=== PATIENT | female | born 1980 | race African-American/Black ===

== ENCOUNTER 2017-04-17 15:40 | Emergency (ER) | payer MEDICAID ==
[~2017-04-17] VITALS: Ht 147.3 cm; Wt 61.5 kg
[~2017-04-17 15:40] MED LIST: CYCL-36 PO; DICL75 PO; HYDR50TA5 PO; LISI10TA PO; WAL-10TA2 PO
[2017-04-17 15:41] VITALS: BP 127/82; PULSE 90; RESP 20; TEMP 99.4; O2SAT 100
[2017-04-17] MEDS ORDERED: MECL-62 PO (16:44)
[2017-04-17] MEDS ORDERED: LISI10TA PO (16:44)
[2017-04-17] MEDS ORDERED: AMOX500C PO (16:44)
--- NOTE | 2017-04-17 16:47 | PD ---
HPI Chief Complaint: Dizziness Time Seen by Provider: 16:40 Travel History International Travel<30 days: No Contact w/Intl Traveler<30days: No Traveled to known affect area: No History of Present Illness HPI 37-year-old female presents to emergency Department with request for medication refill and 2 complaints. Requesting a medication refill on her lisinopril/ hydrochlorothiazide. She took her last pill this morning. First complaint is feeling of dizziness for the last month and a half or more. Dizziness occurs occasionally. Notices it more when she turns her head fast or makes sudden movements. He describes it as a feeling that she is on a boat on waves. She denies feeling faint or syncopal episode. Reports occasional headaches but there normal headaches for her. Denies headache at this time. Denies fever, nausea, vomiting. Denies focal deficits or weakness. Denies slurred speech. Denies confusion, disorientation, change in mentation. Her second complaint is left upper tooth pain since Sunday. She says she does need a root canal and the tooth pain has significantly worsened since Sunday. Facial edema, erythema. Pain is worse with eating. Reports to sensitivity to cold and hot. Denies fever. Has been taking acetaminophen for symptom management. Has no medical complaints. Symptoms are mild in severity. No known allergies. Dr. Bentley is primary care provider. No other modifying factors or associated signs and symptoms. PFSH Past Medical History Cardiovascular Problems: Yes (HTN) Diminished Hearing: No Genitourinary: Yes (GENITAL HERPES) Hypertension: Yes Respiratory: Yes (ALLERGIES) Menopausal: No : 4 Para: 2 Miscarriage: 2 : 1 Past Surgical History Section: Yes (2003, 2009) Other Surgery: Yes (HERNIA, HEMMROIDECTOMY) Social History Alcohol Use: No Tobacco Use: No Substance Use: No Allergies-Medications (Allergen,Severity, Reaction): Coded Allergies: No Known Allergies (Verified , 08/14/16) Reported Meds & Prescriptions Reported Meds & Active Scripts Active Amoxicillin 500 Mg Cap 500 Mg PO BID 10 Days Meclizine (Meclizine HCl) 25 Mg Tab 25 Mg PO DIRECTED PRN Lisinopril-Hctz 10-12.5 Mg Tab 1 Tab PO DAILY Flexeril (Cyclobenzaprine HCl) 10 Mg Tab 10 Mg PO TID PRN Do not drive on medication. Do not take with alcohol. Diclofenac Sodium Dr (Diclofenac Sod) 75 Mg Tab 75 Mg PO BID PRN Reported Loratadine 10 Mg Tab 10 Mg PO DAILY Hydrochlorothiazide 50 Mg Tab 50 Mg PO DAILY Review of Systems Except as stated in HPI: all other systems reviewed are Neg Physical Exam Narrative GENERAL: Well-nourished, well-developed female patient, in no acute distress SKIN: Warm and dry. HEAD: Atraumatic. Normocephalic. No facial droop noted. Tongue midline. No facial edema, erythema, tenderness on palpation. No lymphadenopathy. EYES: Pupils equal and round at 3 mm with brisk reaction. No scleral icterus. No injection or drainage. PERRLA. EOMI. no nystagmus noted. ENT: Mucosa pink and moist. Airway patent. MOUTH: Mucous membranes moist, no lesions, tongue and gums appear normal. Tooth #13 with tenderness on palpation. Surrounding gingiva is without erythema , edema, drainage. No obvious abscess noted. NECK: Trachea midline. No lymphadenopathy. CARDIOVASCULAR: Regular rate and rhythm. No murmur appreciated. RESPIRATORY: No accessory muscle use. Clear to auscultation. Breath sounds equal bilaterally. GASTROINTESTINAL: Flat. MUSCULOSKELETAL: No obvious deformities. No clubbing. No cyanosis. No edema. NEUROLOGICAL: Awake and alert. Oriented 3. No obvious cranial nerve deficits. Motor grossly within normal limits. Normal speech. No ataxia. No mid -line drift. Moves all extremities. 5/5 strength to all extremities. PSYCHIATRIC: Appropriate mood and affect; insight and judgment normal. Data Data Last Documented VS Vital Signs Date Time Temp Pulse Resp B/P (MAP) Pulse Ox O2 Delivery O2 Flow Rate FiO2 04/17/17 15:41 99.4 90 20 127/82 (97) 100 Room Air MDM Medical Decision Making Medical Screen Exam Complete: Yes Emergency Medical Condition: Yes Medical Record Reviewed: Yes Differential Diagnosis Vertigo, medication refill, dentalgia, dental abscess Narrative Course 37-year-old female physical exam consistent with vertigo and dentalgia to tooth #13. Medication refill was also provided for lisinopril/hydrochlorothiazide. Neuro exam is unremarkable. Patient is afebrile and nontoxic-appearing. She denies fever, vomiting. No facial edema or erythema. Amoxicillin, meclizine prescribed for home. Instructed patient to follow up with primary care provider , Dr. Bentley. Instructed patient to follow up with primary care provider. Patient verbalizes understanding and agreement with treatment plan. Patient is medically cleared and stable for discharge. Discussed reasons to return to the emergency department. Patient agrees with treatment plan. The patients vital signs are stable and the patient is stable for outpatient follow-up and treatment. Patient discharged home, stable and in no acute distress. Diagnosis Primary Impression: Medication refill Additional Impressions: Vertigo Dentalgia Referrals: Primary Care Physician Patient Instructions: Dental Abscess (ED), Dental Caries (ED), General Instructions, Medication Refill, ED, Toothache (ED), Vertigo (ED) Additional Instructions: Meclizine as prescribed for vertigo Antibiotics as prescribed for tooth pain; possible dental abscess Blood pressure medication as prescribed Ibuprofen or Tylenol as directed and as needed for pain and information Follow-up with primary care provider Return to the emergency department immediately with worsening of symptoms Med/Other Pt SpecificInfo: Prescription(s) given Scripts Amoxicillin (Amoxicillin) 500 Mg Cap 500 MG PO BID for Infection for 10 Days, CAP 0 Refills Prov: Ashley Leigh 04/17/17 Meclizine (Meclizine) 25 Mg Tab 25 MG PO DIRECTED Y for VERTIGO, #20 TAB 0 Refills Prov: Ashley Leigh 04/17/17 Lisinopril-Hctz (Lisinopril-Hctz) 10-12.5 Mg Tab 1 TAB PO DAILY for Blood Pressure Management, #30 TAB 0 Refills Prov: Ashley Leigh 04/17/17 Disposition: 01 DISCHARGE HOME Condition: Stable Ashley Leigh Apr 17, 2017 16:47
== END 2017-04-17 17:15 | disposition home or self-care (01) ==
LOC: NEPK 15:40
DX: Z76.0 Encounter for issue of repeat prescription (principal); I10 Essential (primary) hypertension; K08.89 Other specified disorders of teeth and supporting structures; R42 Dizziness and giddiness
CPT/HCPCS: 99284